=== PATIENT | male | born 1990 | race Caucasian/White ===

== ENCOUNTER 2016-07-23 08:15 | Emergency (ER) | payer OTHER ==
[~2016-07-23] VITALS: Ht 134.6 cm; Wt 61.2 kg
[~2016-07-23 08:15] MED LIST: ALAVERT10 M2 PO; PAXIL10 MG PO; SINGULAIR10 MG GT; TAGAMET300 M1 PO; ZANTAC150 M1 PO
[2016-07-23 08:36] VITALS: BP 136/85
[2016-07-23] MEDS ORDERED: CELEXA10 MG PO (08:41)
--- NOTE | 2016-07-23 08:43 | NUR ---
PT TO BED 5 AT THIS TIME.
--- NOTE | 2016-07-23 08:44 | NUR ---
26M BIB MOTHER C/O HICCUPS X LAST NIGHT; NO HICCUPS HEARD AT THIS TIME; PT A&O, ACTING NEUROLOGICALLY AT BASELINE; PT NON-VERBAL, BUT ABLE TO COMPREHEND COMMANDS; POINTED TO MID-ABDOMEN WHEN ASKED ABOUT PAIN, 4/10; NO FACIAL GRIMMACE NOTED AT THIS TIME; PT SMILING, COOPERATIVE, ABLE TO FOLLOW COMMANDS; MOTHER STATES PT UNABLE TO SLEEP LAST NIGHT D/T HICCUPS; MOTHER DENIES FEVER, N/V/D AT THIS TIME; BL LUNG SOUNDS CLEAR, RR EVEN/UNLABORED, SKIN IS WARM/DRY/INTACT AT THIS TIME; PT RESTING IN BED W/ HOB ELEVATED AND IN LOWEST POSITION; MOTHER AT BEDSIDE; ER MD MADE AWARE OF STATUS. WILL CONTINUE TO MONITOR.
--- NOTE | 2016-07-23 09:21 | NUR ---
ER MD DR. BAUMANN EVALUATING PT AT BEDSIDE.
[2016-07-23] MEDS ORDERED: ONDANSETRON 4 MG ODT PO ONE (09:30)
[2016-07-23] MEDS ORDERED: FAMOTIDINE 20 MG TAB PO ONE (09:30)
--- NOTE | 2016-07-23 09:31 | NUR ---
PT AMBULATED TO RESTROOM ASSISTED BY MOTHER AT THIS TIME.
--- NOTE | 2016-07-23 09:50 | NUR ---
PT TAKEN TO CT VIA W/C ACCOMPANIED BY PEDIATRIC LICENSED PRACTICAL NURSE.
--- NOTE | 2016-07-23 10:33 | NUR ---
WARM BLANKET PROVIDED TO PT FOR COMFORT; VSS AT THIS TIME; WILL CONTINUE TO MONITOR.
[2016-07-23 11:35] VITALS: BP 123/79
--- NOTE | 2016-07-23 11:35 | NUR ---
Patient discharged with v/s stable. Written and verbal after care instructions given and explained TO PT & MOTHER. Patient alert, oriented and verbalized understanding of instructions. Ambulatory with steady gait. All questions addressed prior to discharge. ID band removed. Patient advised to follow up with PMD. Rx of ZOFRAN ODT 4MG & OMEPRAZOLE 40MG given. Patient educated on indication of medication including possible reaction and side effects. Opportunity to ask questions provided and answered.
== END 2016-07-23 11:35 | disposition home or self-care (01) ==
LOC: MED 08:15
DX: K44.9 Diaphragmatic hernia without obstruction or gangrene (principal); R03.0 Elevated blood-pressure reading, without diagnosis of hypertension; G80.9 Cerebral palsy, unspecified; J45.909 Unspecified asthma, uncomplicated
CPT/HCPCS: 36415; 74176; 80053; 81003; 83690; 85025; 99285; S0119

== ENCOUNTER 2016-08-23 20:32 | Emergency (ER) | payer OTHER ==
[~2016-08-23] VITALS: Ht 149.9 cm; Wt 59.0 kg
[~2016-08-23 20:32] MED LIST changes: +CELEXA10 MG PO
[2016-08-23 20:35] VITALS: BP 139/85
--- NOTE | 2016-08-23 20:42 | NUR ---
[place] in [facility] - 08/23/16 at [address] Ware evaluating patient at bedside.
--- NOTE | 2016-08-23 20:45 | NUR ---
Patient taken to bed 02 via wheelchair.
--- NOTE | 2016-08-23 20:48 | NUR ---
26 Y/O BIB MOTHER W/C/O HEAD PAIN AND RT FOOT PAIN S/P FALL WHILE WALKING LOSS OF BALANCE AT 1900 HOURS. PT MENTALLY CHALLENGE, MOTHER ANSWERED QUESTIONER. NO S/S OF DISTRESS NOTED AT THE MOMENT ER MD AWARED.
--- NOTE | 2016-08-23 20:50 | NUR ---
Dr. Ware evaluating patient at bedside.
[2016-08-23 22:00] VITALS: BP 126/76
--- NOTE | 2016-08-23 22:00 | NUR ---
Patient discharged with v/s stable. Written and verbal after care instructions given and explained TO PT'S MOTHER. MOTHER verbalized understanding. Wheel Chair Assisted with by parent. All questions addressed prior to discharge. Advised to follow up with PMD.
== END 2016-08-23 22:00 | disposition home or self-care (01) ==
LOC: MED 20:32
DX: S92.251A Displaced fracture of navicular [scaphoid] of right foot, initial encounter for closed fracture (principal); S92.221A Displaced fracture of lateral cuneiform of right foot, initial encounter for closed fracture; S09.90XA Unspecified injury of head, initial encounter; G80.9 Cerebral palsy, unspecified; J45.909 Unspecified asthma, uncomplicated; K21.9 Gastro-esophageal reflux disease without esophagitis; W01.0XXA Fall on same level from slipping, tripping and stumbling without subsequent striking against object, initial encounter; Y93.01 Activity, walking, marching and hiking; Y92.89 Other specified places as the place of occurrence of the external cause; Y99.8 Other external cause status
CPT/HCPCS: 29515; 73630; 99284; Q0092

== ENCOUNTER 2017-03-10 09:30 | Emergency (ER) | payer OTHER ==
[~2017-03-10] VITALS: Ht 144.8 cm; Wt 58.3 kg
[~2017-03-10 09:30] MED LIST changes: -ALAVERT10 M2 PO; -CELEXA10 MG PO; +CITA10TA11 PO; +MONT10TA35 GT; -PAXIL10 MG PO; -SINGULAIR10 MG GT; -TAGAMET300 M1 PO; -ZANTAC150 M1 PO
[2017-03-10 09:39] VITALS: BP 117/73
[2017-03-10 10:36] VITALS: BP 134/86
== END 2017-03-10 10:36 | disposition home or self-care (01) ==
LOC: MED 09:30
DX: S62.354A Nondisplaced fracture of shaft of fourth metacarpal bone, right hand, initial encounter for closed fracture (principal); F79 Unspecified intellectual disabilities; J45.909 Unspecified asthma, uncomplicated; K21.9 Gastro-esophageal reflux disease without esophagitis; Z79.899 Other long term (current) drug therapy; X58.XXXA Exposure to other specified factors, initial encounter; Y93.89 Activity, other specified; Y92.89 Other specified places as the place of occurrence of the external cause; Y99.8 Other external cause status
CPT/HCPCS: 73130; 99284

== ENCOUNTER 2017-05-20 16:18 | Emergency (ER) | payer OTHER ==
[~2017-05-20] VITALS: Ht 134.6 cm; Wt 59.1 kg
[2017-05-20 16:24] VITALS: BP 114/68
--- NOTE | 2017-05-20 16:34 | NUR ---
PATIENT PRESENTS TO ED WITH PAIN TO RIGHT KNEE X 8 DAYS, WITH NO REPORTED TRAUMA. DENIES N/V/D; SKIN IS PINK/WARM/DRY; AAOX4 WITH EVEN AND STEADY GAIT; LUNGS CLEAR BL; HR EVEN AND REGULAR; PT DENIES ANY FEVER, CP, SOB, OR COUGH AT THIS TIME; REPORTED PAIN WITH AMBULATION; VSS; PATIENT POSITIONED FOR COMFORT; HOB ELEVATED; BEDRAILS UP X2; BED DOWN. ER MD MADE AWARE OF PT STATUS.
--- NOTE | 2017-05-20 16:55 | NUR ---
DR. CASAS EVALUATING PT AT BEDSIDE.
[2017-05-20] MEDS: ACETAMINOPHEN 325 MG TAB PO ONE (17:08)
--- NOTE | 2017-05-20 17:13 | NUR ---
PT TO RADIOLOGY VIA [email or web address]. TECH PRESENT.
--- NOTE | 2017-05-20 17:57 | NUR ---
PT BACK FROM RADIOLOGY
--- NOTE | 2017-05-20 19:00 | NUR ---
Patient discharged with v/s stable. Written and verbal after care instructions given and explained. Patient verbalized understanding. Wheel Chair Assisted with by parent. All questions addressed prior to discharge. Advised to follow up with PMD.
[2017-05-20 19:01] VITALS: BP 114/68
== END 2017-05-20 19:00 | disposition home or self-care (01) ==
LOC: MED 16:18
DX: M25.551 Pain in right hip (principal); J45.909 Unspecified asthma, uncomplicated; M41.9 Scoliosis, unspecified
CPT/HCPCS: 72100; 72170; 73502; 99284

== ENCOUNTER 2021-02-17 16:25 | Emergency (ER) | payer OTHER ==
[~2021-02-17] VITALS: Ht 144.8 cm; Wt 56.7 kg
[2021-02-17 16:45] VITALS: BP 136/86
--- NOTE | 2021-02-17 16:51 | NUR ---
PT AMBULATED TO BED 3 VIA WALKER WITH ASSISTANCE FROM FAMILY
--- NOTE | 2021-02-17 16:59 | NUR ---
30yo m epi mother c/o chronic abdominal pain x 4 years an blood in stool x 4 days. pt had surgery for hiatal hernia last september 2020. pt is non-verbal pmh: see notes nka Addendum: 02/17/21 at 1703 by [email or web address] 30yo m epi mother c/o chronic abdominal pain x 4 years an blood in stool x 4 days. pt had surgery for hiatal hernia last september 2020. pt is non-verbal, BUT ABLE TO COMPREHEND COMMANDS; pmh: Asthma, Gastroesophageal Reflux, HERNIA, HORIZONTAL GAZE PALSY, SCOLIOSIS nka
[2021-02-17 17:45] LABS: BASOPHILS # (AUTO) 0.1 K/uL (0.00-0.22); BASOPHILS % (AUTO) 0.7 % (0.0-2.0); EOSINOPHILS # (AUTO) 0.1 K/uL (0-0.4); EOSINOPHILS % (AUTO) 1.8 % (0.0-4.0); HEMOGLOBIN 15.2 g/dL (12.0-18.0); LYMPHOCYTES # (AUTO) 2.3 K/uL (2.0-11.5); LYMPHOCYTES % (AUTO) 30.2 % (20.5-51.1); MEAN CORPUSCULAR HEMOGLOBIN 27 pg (27-31); MEAN CORPUSCULAR HGB CONC 33 g/dL (33-37); MEAN CORPUSCULAR VOLUME 82.8 fL (80-94); MONOCYTES # (AUTO) 0.6 K/uL (0.8-1.0); MONOCYTES % (AUTO) 7.5 % (1.7-9.3); NEUTROPHILS # (AUTO) 4.6 K/uL (1.8-7.7); NEUTROPHILS % (AUTO) 59.8 % (42.2-75.2); PLATELET COUNT (AUTO) 221 K/uL (140-450); RED BLOOD CELL COUNT(AUTO) 5.55 MIL/uL (4.20-6.10); RED CELL DISTRIBUTION WIDTH 14.4 % (11.6-13.7); WHITE BLOOD COUNT (AUTO) 7.7 K/uL (4.8-10.8)
[2021-02-17 17:57] LABS: ALBUMIN 4.2 g/dL (3.4-5.0); ANION GAP 10.1 (8-16); CARBON DIOXIDE 29.2 mmol/L (21-32); CREATININE 0.8 mg/dL (0.6-1.3); POTASSIUM 4.3 mmol/L (3.5-5.1); TOTAL BILIRUBIN 0.5 mg/dL (0.0-1.0)
--- NOTE | 2021-02-17 17:58 | NUR ---
PT TAKEN TO CT
--- NOTE | 2021-02-17 18:09 | NUR ---
PT RETURNED FROM CT
--- NOTE | 2021-02-17 19:13 | NUR ---
Pt report given to MANISH Martinez. Transfer of care at this time.
[2021-02-17] MEDS ORDERED: MAGN400S60 PO (19:19)
[2021-02-17 19:28] VITALS: BP 122/78
== END 2021-02-17 19:28 | disposition home or self-care (01) ==
LOC: MED 16:25
DX: K59.00 Constipation, unspecified (principal); J45.909 Unspecified asthma, uncomplicated; K21.9 Gastro-esophageal reflux disease without esophagitis
CPT/HCPCS: 36415; 80053; 83690; 85025; 99284